=== PATIENT | male | born 1970 | race Caucasian/White ===

== ENCOUNTER 2024-07-12 15:40 | Emergency (ER) | payer OTHER, SELFPAY ==
--- NOTE | 2024-07-12 15:53 | ED.NAVMDI ---
HPI - Nausea/Vomiting/Diarrhea General Chief complaint: Nausea/Vomiting/Diarrhea Stated complaint: diarrhea,stomach cramps Time Seen by Provider: 07/12/24 15:53 Source: patient Mode of arrival: ambulatory Limitations: no limitations History of Present Illness HPI Narrative: [age] old male presents with complaint of abdominal cramping, fatigue, body aches, fever, DI [facility] and nausea. Symptoms for 2 days. Did not vomit. Took 1 Imodium. No diarrhea or fever today. Feeling much better. Continues to have abdominal cramping. Patient concerned if he should go in to work or not tomorrow. Asking for COVID and influenza test. All systems reviewed and negative except as noted above. Related Data Allergies Allergy/AdvReac Type Severity Reaction Status Date / Time No Known Allergies Allergy Unverified 07/12/24 15:45 Review of Systems Review of Systems: CONSTITUTIONAL: Reports fever, fatigue. Denies chills, or sweats. EYES: Denies visual changes, redness, or discharge. ENT: Denies rhinorrhea, congestion, sore throat, or otalgia. CARDIOVASCULAR: Denies chest pain, palpitations, or edema. RESPIRATORY: Denies cough or dyspnea. GASTROINTESTINAL: Reports abdominal pain, nausea and diarrhea. denies vomiting. GENITOURINARY: Denies dysuria or hematuria. SKIN: Denies rash or itching. MUSCULOSKELETAL: Denies back pain, joint pain, or myalgia. NEUROLOGIC: Denies headache, numbness, or weakness. PSYCHIATRIC: Denies anxiety or depression. All other systems reviewed are negative, except as documented in HPI. PMFSH Comments At time of signature, agree with nursing past medical, surgical, social and family history. There is no relevant family history pertinent to the presenting complaint. Exam Narrative: GENERAL: This is a well-nourished, well-developed patient, in no apparent distress. HEAD: normocephalic, atraumatic. EYES: PERRL. Sclera clear/white. Vision is grossly intact. EARS: External ears normal NOSE: External nose normal NECK: Neck supple, non-tender without lymphadenopathy, masses or thyromegaly. CARDIOVASCULAR: Regular rate and rhythm without murmurs, gallops, or rubs. RESPIRATORY: Clear to auscultation. Breath sounds equal bilaterally. No wheezes, rales, or rhonchi. GASTROINTESTINAL: Abdomen soft, non-tender, nondistended. Bowel sounds are active. No hepato-splenomegaly, or palpable masses. No guarding. SKIN: warm, Dry, intact with no suspicious lesions or rash, good texture and turgor. NEURO: awake, alert, and oriented to person, place and time. Course Course Level of Care: Express Care Visit Vital Signs Vital signs: Vital Signs Temperature 37.1 C 07/12/24 15:54 Pulse Rate 93 07/12/24 15:54 Respiratory Rate 16 07/12/24 15:54 Blood Pressure 150/79 H 07/12/24 15:54 Pulse Oximetry 99 07/12/24 15:54 Oxygen Delivery Room Air 07/12/24 15:54 Temperature 37.1 C 07/12/24 15:54 Pulse Rate 93 07/12/24 15:54 Respiratory Rate 16 07/12/24 15:54 Blood Pressure 150/79 H 07/12/24 15:54 Pulse Oximetry 99 07/12/24 15:54 Oxygen Delivery Room Air 07/12/24 15:54 reviewed MDM - Nausea/Vomiting/Diarrhea MDM Narrative Medical decision making narrative: negative COVID and influenza testing. Patient is well-appearing, nontoxic. No abdominal tenderness on exam. Recommend he continue fluids, ibuprofen as needed for pain. Go to the ER if pain is severe. Please be advised this is a medical document. It is intended for [id number] communication. It is written in medical language and may contain unfamiliar abbreviations or verbiage. Medical documents are intended to carry relevant information, facts as evident, and the clinical opinion of the practitioner at the time of the encounter. This report may have been done utilizing a voice recognition system. Attempts have been made to correct errors. However, there may be uncorrected grammatical, spelling, and recognition errors present. The file time of this note does not necessarily represent the time of service. Discharge Plan Discharge Clinical Impression: Viral gastroenteritis Patient Disposition: Home, Self-Care Condition: Stable Instructions: Gastroenteritis (ED) Additional Instructions: Your COVID and influenza test was negative today. Your symptoms are viral and may last 7-10 days. Take Tylenol or ibuprofen every 6-8 hours as needed for pain and fever. Drink at least 64 oz of water a day. Follow-up with your doctor if symptoms are not improving. If you have severe abdominal pain or concerns for dehydration go to the ER. Patient Language: Kiswahili Follow-up/Referrals: PHYSICIAN NOT ON STAFF,NONSTAFF [Primary Care Provider] - Time of Disposition: 16:14
[2024-07-12 15:54] VITALS: BP 150/79; PULSE 93; RESP 16; TEMP 37.1; O2SAT 99
[2024-07-12 16:40] LABS: EDCOVIDSCREEN Negative (Negative); EDINFLUASCREEN Negative (Negative); EDINFLUBSCREEN Negative (Negative)
== END 2024-07-12 16:18 | disposition home or self-care (01) ==
PROVIDERS: Emergency Provider Nurse Practitioner Family
DX: A08.4 Viral intestinal infection, unspecified (principal); Z20.822 Contact with and (suspected) exposure to COVID-19
CPT/HCPCS: 87426; 87804; 99202; G0463